=== PATIENT | male | born 1985 | race Hispanic/Latino ===

== ENCOUNTER 2024-07-03 20:49 | Emergency (ER) | payer SELFPAY ==
[~2024-07-03 20:49] MED LIST: Iopamidol 300 61% 100 ML VIAL FS ONE
[2024-07-03] MEDS ORDERED: Ondansetron PF 4 MG/2 ML Vial ONE (21:20)
[2024-07-03] MEDS ORDERED: Morphine 4 MG/ML VIAL ONE (21:20)
[2024-07-03] MEDS ORDERED: Piperacillin/Tazobactam 4.5 GM VIAL ONE (21:21)
[2024-07-03 21:57] LABS: #Basophils 0.04 10x3/uL (0.0-0.2); #Eosinphils 0.05 10x3/uL (0.0-0.5); #Monocytes 0.93 10x3/uL (0.0-1.1); #Neutrophils 15.87 10x3/uL (1.5-8.4); %Basophils 0.2 % (0.0-2.0); %Eosinophils 0.3 % (0.0-6.0); %Lymphocytes 8.1 % (18.0-47.0); Hemoglobin 15.1 g/dL (13.5-17.5); Mean Corpuscular HGB CONC 33.6 g/dL (32.0-36.0); Mean Corpuscular Hemoglobin 30.6 pg (27.0-33.0); Mean Corpuscular Volume 91.1 fL (81.2-95.1); Mean Platelet Volume 9.9 fL (7.4-10.4); Platelet Count 345 10x3/uL (150-450); RBC Distribution Width 13.1 % (11.5-14.5); Red Blood Cell (RBC) Count 4.94 10x6/uL (4.32-5.72); White Blood Cell (WBC) Count 18.5 10x3/uL (3.5-10.5)
[2024-07-03 22:16] LABS: Bilirubin Neg (Negative); Blood, Urine Negative (Negative); Clarity Clear (Clear); Glucose, Urine (Dipstick) Normal (Negative); Ketone, Urine Negative (Negative); Leukocyte Negative (Negative); Nitrite Negative (Negative); Protein, Urine (Dipstick) Negative (Neg-Trace); Urobilinogen Normal mg/dL (Less than 2)
[2024-07-03 22:47] LABS: Bacteria/HPF None Seen HPF (None Seen); CAUTI Indications for Culture Fever or rigors; RBC/HPF None Seen HPF (0-3); Squamous Epithelial None Seen HPF (0-3); WBC/HPF None Seen HPF (0-3)
[2024-07-03 22:48] LABS: Urine Culture Reflex No No
[2024-07-03 22:57] LABS: ALT (SGPT) 49 U/L (8-55); AST (SGOT) 29 U/L (5-34); Alkaline Phosphatase 73 U/L (40-110); Anion Gap 14 mmol/L (10-20); BUN (Urea Nitrogen) 17 mg/dL (8.9-20.6); Bilirubin, Total 0.2 mg/dL (0.2-1.2); Calc. Creatinine Clearance 0 mL/min (70-130); Calcium 9.8 mg/dL (7.8-10.44); Carbon Dioxide 25 mmol/L (22-29); Chloride 104 mmol/L (98-107); Estimated GFR 83; Globulin 3.9 g/dL (2.4-3.5); Glucose 102 mg/dL (70-105); Lipase 39 U/L (8-78); Potassium 4.2 mmol/L (3.5-5.1); Protein, Total 7.9 g/dL (6.0-8.3); Sodium 139 mmol/L (136-145)
[2024-07-03] MEDS ORDERED: Bupivacaine PF 0.5% 30 ML VIAL ONE (23:01)
[2024-07-03] MEDS ORDERED: Lidocaine 2% PF 5 ML VIAL ONE (23:02)
[2024-07-03] MEDS ORDERED: Lidocaine 1% (PF) 30 ML VIAL ONE (23:03)
[2024-07-03] MEDS ORDERED: HYDROmorphone 0.5 MG/0.5 ML SYRINGE ONE (23:07)
[2024-07-03] MEDS ORDERED: Clindamycin/D5W 900 MG in Premix 1 BAG IVPB SCH (23:15)
== END 2024-07-04 00:33 | disposition home or self-care (01) ==
LOC: CSHERS 20:49
DX: K61.1 Rectal abscess (principal); I10 Essential (primary) hypertension; F17.210 Nicotine dependence, cigarettes, uncomplicated
CPT/HCPCS: 10060; 36415; 36416; 72193; 80053; 81001; 83605; 83690; 85025; 87040; 96361; 96365; 96367; 96375; J0665; J1170; J2001; J2272; J2405; J2543; J3490; Q9967